=== PATIENT | female | born 1955 | race Two or more races ===

== ENCOUNTER 2024-02-26 19:41 | Emergency (ER) | payer OTHER ==
[2024-02-26 20:00] VITALS: BP 137/50; PULSE 65; RESP 18; TEMP 98.2; BMI 28.3
[2024-02-26] MEDS ORDERED: AMOX TR/POT CLAV 875MG/125MG TABLETS (FP) ONE (20:37)
[2024-02-26] MEDS ORDERED: ACETAMINOPHEN 500 MG TABLET (FP) ONE (20:37)
[2024-02-26] MEDS: AMOX TR/POT CLAV 875MG/125MG TABLETS (FP) PO ONE (20:40)
[2024-02-26] MEDS: ACETAMINOPHEN 500 MG TABLET (FP) PO ONE (20:40)
== END 2024-02-26 20:40 | disposition home or self-care (01) ==
LOC: JER 19:41 → JERFT 19:41
DX: H92.02 Otalgia, left ear (principal); H66.92 Otitis media, unspecified, left ear
CPT/HCPCS: 99283-25